=== PATIENT | female | born 1955 | race Asian ===

== ENCOUNTER 2017-04-14 23:36 | Emergency (ER) | payer OTHER ==
[2017-04-15] MEDS ORDERED: ASPIRIN CHEW 81 MG TABLET PO STA (00:02)
[2017-04-15 00:14] LABS: BASOPHILS # (AUTO) 0.1 10^3/uL (0.0-0.1); BASOPHILS % (AUTO) 0.5 %; EOSINOPHILS # (AUTO) 0.1 10^3/uL (0.0-0.7); EOSINOPHILS % (AUTO) 0.4 %; HGB - HEMOGLOBIN 13.3 g/dL (12.0-16.0); LYMPHOCYTES # (AUTO) 0.8 10^3/uL (1.5-3.5); LYMPHOCYTES % (AUTO) 6.4 %; MEAN CORPUSCULAR HEMOGLOBIN 29.8 pg (27.0-31.0); MEAN CORPUSCULAR HGB CONC 34.4 g/dL (32.0-36.0); MEAN CORPUSCULAR VOLUME 86.7 fL (81.0-99.0); MEAN PLATELET VOLUME 7.9 fL (7.9-10.8); MONOCYTES # (AUTO) 0.8 10^3/uL (0.0-1.0); MONOCYTES % (AUTO) 6.5 %; NEUTROPHILS # (AUTO) 10.1 10^3/uL (1.5-6.6); NEUTROPHILS % (AUTO) 86.2 %; PLT - PLATELET COUNT 265 10^3/uL (130-450); RED BLOOD COUNT 4.45 10^6/uL (4.20-5.40); RED CELL DISTRIBUTION WIDTH 12.7 % (12.0-15.0); WHITE BLOOD COUNT 11.7 x10^3/uL (4.8-10.8)
[2017-04-15 00:22] LABS: ALBUMIN 4.2 g/dL (3.2-5.5); ALBUMIN/GLOBULIN RATIO 1.2 (1.0-2.2); BILIRUBIN,TOTAL 1.8 mg/dL (0.2-1.0); CALCIUM 9.4 mg/dL (8.5-10.3); CREATININE 1.1 mg/dL (0.4-1.0); TOTAL PROTEIN 7.8 g/dL (6.7-8.2)
--- NOTE | 2017-04-15 00:41 | ED Physician Documentation ---
History of Present Illness - Stated complaint Stated Complaint: RT SIDE WEAKNESS - Chief complaint Chief Complaint: Neuro - History obtained from History obtained from: Patient (pt is here for evaluation of right arm and leg weakness. She reports that she woke from a nap at approx noon today and had weakness to her right leg and arm. she reports that she fell off the couch that she was sleeping on and layed on the floor for a couple hours until she was able to crawl to her bedroom where she had a stick and tried to walk. She arrived to the ER approx 12 hours after the onset of her symptoms. she reports no improvement or worsening of her symptoms since the onset. No other symptoms. ) Review of Systems Ten Systems: 10 systems reviewed and negative Constitutional: denies: Fever, Chills Eyes: denies: Loss of vision, Decreased vision, Photophobia Ears: denies: Tinnitus/ringing Nose: denies: Sinus pressure / pain Throat: denies: Oral lesions / sores, Sore throat Cardiac: denies: Chest pain / pressure, Palpitations, Pedal edema, Calf pain Respiratory: denies: Dyspnea, Cough GI: denies: Abdominal Pain, Nausea, Vomiting, Constipation, Diarrhea : reports: Dysuria (pt states that she has a UTI but is not taking medications.). denies: Hematuria Skin: denies: Rash, Lesions Musculoskeletal: denies: Neck pain, Back pain, Extremity pain, Joint pain Neurologic: reports: Focal weakness (right leg and right arm), Numbness (right leg and right arm). denies: Generalized weakness, Confused, Altered mental status, Headache, Head injury, LOC PD PAST MEDICAL HISTORY - Past Medical History Past Medical History: Yes Endocrine/Autoimmune: HyPOthyroidism - Past Surgical History Past Surgical History: No - Present Medications Home Medications: Ambulatory Orders Medication Instructions Recorded Confirmed Levothyroxine [Synthroid] 125 mcg PO DAILY 01/29/15 04/14/17 - Allergies Allergies/Adverse Reactions: Allergies Allergy/AdvReac Type Severity Reaction Status Date / Time heparin Allergy Unknown Verified 04/14/17 23:47 meperidine HCl * Allergy Unknown Verified 04/14/17 23:47 [From Demerol] - Social History Does the pt smoke?: No Smoking Status: Never smoker Does the pt drink ETOH?: No Does the pt have substance abuse?: No - Immunizations Immunizations are current?: Yes - POLST Patient has POLST: No PD ED PE NORMAL - Vitals Vital signs reviewed: Yes - General General: Alert and oriented X 3, No acute distress, Well developed/nourished - HEENT HEENT: Atraumatic, PERRL, EOMI, Ears normal, Moist mucous membranes - Neck Neck: No bony TTP - Cardiac Cardiac: No murmur, No gallop. No: RRR (tachycardic to 105 in triage rate of 94 on the ECG) - Respiratory Respiratory: No respiratory distress, Clear bilaterally - Abdomen Abdomen: Normal bowel sounds, Soft - Back Back: No CVA TTP - Derm Derm: Normal color, Warm and dry, No rash - Extremities Extremities: No deformity, No tenderness to palpate, No edema, No calf tenderness / cord - Neuro Neuro: Alert and oriented X 3, correctional probation officer 2-12 intact, Normal speech Eye Opening: Spontaneous Motor: Obeys Commands Verbal: Oriented GCS Score: 15 - Psych Psych: Normal mood, Normal affect PD ED PE EXPANDED - Neuro Neuro: Alert and Oriented X 3, Normal Sensation (Pt reported numbness to right leg and right arm but reported equal sensation to light touch to bilateral upper and lower extremities. ), Normal Speech, Weakness (pt with 5/5 strength left LE and 2/5 strength right LE. 5/5 left UE and 4/5 right UE), CNII-XII intact, PERRL, Normal finger nose, Normal speech. No: Confused, Disoriented, Lethargic, Obtunded, Unresponsive, Right face, Left face, CN deficit, Nystagmus , Aphasia, Dysarthria Results - Vitals Vitals: Vital Signs - 24 hr 04/14/17 04/15/17 04/15/17 23:41 01:01 01:44 Temperature 37.2 C 38.2 C H Heart Rate 105 H 98 94 Respiratory 18 18 18 Rate Blood Pressure 196/98 H 187/94 H 185/97 H O2 Saturation 97 100 97 Oxygen O2 Source Room air - EKG (time done) 0010 Rate: Rate (enter#) Rhythm: NSR [place]: Normal Intervals: Normal AL, QRS normal. No: Prolonged QT QRS: Normal Ischemia: T wave inversion (V1-V6, 2, 3 avf) - Labs Labs: Laboratory Tests 04/14/17 04/14/17 04/14/17 00:53 23:52 23:52 WBC 11.7 H RBC 4.45 Hgb 13.3 Hct 38.6 MCV 86.7 MCH 29.8 MCHC 34.4 RDW 12.7 Plt Count 265 MPV 7.9 Neut # 10.1 H Lymph # 0.8 L Harper # 0.8 Eos # 0.1 Baso # 0.1 Absolute Nucleated RBC 0.00 Nucleated RBC % 0.0 PT 12.3 INR 1.1 APTT 24.9 Sodium 140 Potassium 3.3 L Chloride 102 Carbon Dioxide 25 Anion Gap 13.0 BUN 13 Creatinine 1.1 H Estimated GFR (MDRD) 51 L Glucose 127 H Calcium 9.4 Total Bilirubin 1.8 H AST 44 H ALT 26 Alkaline Phosphatase 75 Total Creatine Kinase 593 H Troponin I Total Protein 7.8 Albumin 4.2 Globulin 3.6 Albumin/Globulin Ratio 1.2 Lipase 22 Urine Color Urine Clarity Urine pH Ur Specific [place] Urine Protein Urine Glucose (UA) Urine Ketones Urine Occult Blood Urine Nitrite Urine Bilirubin Urine Urobilinogen Ur Leukocyte Esterase Urine RBC Urine WBC Ur Squamous Epith Cells Urine Bacteria Ur Microscopic Review Urine Culture Comments 04/14/17 04/15/17 23:52 01:44 WBC RBC Hgb Hct MCV MCH MCHC RDW Plt Count MPV Neut # Lymph # Harper # Eos # Baso # Absolute Nucleated RBC Nucleated RBC % PT INR APTT Sodium Potassium Chloride Carbon Dioxide Anion Gap BUN Creatinine Estimated GFR (MDRD) Glucose Calcium Total Bilirubin AST ALT Alkaline Phosphatase Total Creatine Kinase Troponin I 0.04 Total Protein Albumin Globulin Albumin/Globulin Ratio Lipase Urine Color YELLOW Urine Clarity HAZY Urine pH 6.0 Ur Specific [place] 1.015 Urine Protein 100 H Urine Glucose (UA) NEGATIVE Urine Ketones NEGATIVE Urine Occult Blood MODERATE H Urine Nitrite NEGATIVE Urine Bilirubin NEGATIVE Urine Urobilinogen 0.2 (NORMAL) Ur Leukocyte Esterase SMALL H Urine RBC 6-10 H Urine WBC >25 H Ur Squamous Epith Cells FEW Squamous Urine Bacteria Many H Ur Microscopic Review INDICATED Urine Culture Comments INDICATED - Rads (name of study) Head CT Radiology: Final report received CTA head Radiology: Final report received CTA neck Radiology: Final report received PD MEDICAL DECISION MAKING - ED course Complexity details: reviewed results, re-evaluated patient, considered differential, d/w patient, d/w family, d/w wine consultant ED course: pt out of the window for TPA becuase she came in approx 12 hours after onset of symptoms. head CT neg for acute bleed, CTA of head and neck neg for emergent pathology. initial discussion with hospitalist the decision was made to [facility] because we did not have a neurologist here. at 0200 after her CTA head and neck , pt reported a complete resolution of her symptoms. upon re-evaluation pt was able to rise her leg in the air and reported equal sensation. Pt was given an ASA in the ER. Because of the resolution of her symptoms she is able to stay here for observation and work up for TIA. Departure - Departure Disposition: ED Place in Observation Clinical Impression: TIA (transient ischemic attack) Condition: Stable
--- NOTE | 2017-04-15 00:42 | CT Preliminary Report ---
Exam: CT HEAD W/O IMPRESSION: Generalized age-related cortical atrophic changes without evidence of acute intracranial abnormality. [facility] SITE ID: [id number]
--- NOTE | 2017-04-15 00:49 | CT Report ---
EXAM: CT HEAD EXAM DATE: 04/15/2017 12:34 AM. CLINICAL HISTORY: Leg weakness and fall. COMPARISON: None. TECHNIQUE: Multiaxial CT images were obtained from the foramen magnum to the vertex. Reformats: Coron al. IV contrast: None. In accordance with CT protocol optimization, one or more of the following dose reduction techniques w ere utilized for this exam: automated exposure control, adjustment of mA and/or KV based on patient s ize, or use of iterative reconstructive technique. FINDINGS: Parenchyma: No intraparenchymal hemorrhage. No evidence of mass, midline shift, or CT findings of acu te infarction. Rosales-white differentiation is distinct. Diffuse chronic microangiopathic white matter changes are evident. Extraaxial Spaces: Normal for age. No subdural or epidural collections identified. Ventricles: The ventricles and cortical sulci are mildly enlarged, consistent with age-related tissue loss. Sinuses and orbits: Imaged paranasal sinuses, orbits, and mastoids show no significant abnormality. Bones: No evidence of fracture or calvarial defect. IMPRESSION: Generalized age-related cortical atrophic changes without evidence of acute intracranial abnormality. [facility] Referring Provider Line: [phone] SITE ID: [id number]
[2017-04-15 01:00] LABS: INR 1.1 (0.8-1.2); PT - PROTHROMBIN TIME 12.3 secs (9.9-12.6)
[2017-04-15] MEDS ORDERED: IOPAMIDOL-300 100 ML VIAL ONE (01:09)
[2017-04-15] MEDS ORDERED: IOPAMIDOL-300 100 ML VIAL IVP ONE (01:37)
[2017-04-15] MEDS ORDERED: SODIUM CHLORIDE 0.9% 1,000 ML IV ONE (01:45)
[2017-04-15 01:57] LABS: BILIRUBIN,URINE NEGATIVE (NEGATIVE); GLUCOSE, URINE (UA) NEGATIVE (NEGATIVE); KETONES,URINE (UA) NEGATIVE (NEGATIVE); LEUKOCYTE ESTERASE, URINE SMALL (NEGATIVE); NITRITE,URINE NEGATIVE (NEGATIVE); OCCULT BLOOD,URINE MODERATE (NEGATIVE); PROTEIN,URINE 100 mg/dL (NEGATIVE); UROBILINOGEN,URINE 0.2 (NORMAL) E.U./dL (NORMAL)
[2017-04-15 01:58] LABS: CLARITY,URINE HAZY (CLEAR)
[2017-04-15 02:03] LABS: BACTERIA,URINE Many /HPF (None Seen); SQUAMOUS EPITHELIAL CELL,UR FEW Squamous (<= Few)
--- NOTE | 2017-04-15 02:09 | CT Preliminary Report ---
Exam: CT HEAD ANGIO IMPRESSION: 1. No abnormal brain parenchymal enhancement. 2. Patent dural venous sinuses. 3. Mild irregularity of the anterior and posterior circulation vessels, likely reflecting intracrania l atherosclerosis. 4. Superimposed focal high-grade stenosis of the left P2 segment measures 60-70 percent. [facility] SITE ID: [id number]
--- NOTE | 2017-04-15 02:15 | CT Preliminary Report ---
Exam: CT NECK ANGIO IMPRESSION: 1. Normal CT angiogram of the neck. 2. 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 [facility] SITE ID: [id number]
--- NOTE | 2017-04-15 02:18 | CT Report ---
EXAM: CT ANGIOGRAM HEAD. CT SCAN OF THE HEAD WITH CONTRAST. EXAM DATE: 04/15/2017 01:38 AM CLINICAL HISTORY: Right-sided weakness. COMPARISON: Noncontrast brain CT from the same day. TECHNIQUE: 1. CT Scan Head: Using a multidetector scanner, axial images were acquired from the foramen magnum to the skull vertex following contrast administration. 2. CT Angiogram: Using a multidetector scanner, high-resolution axial images were acquired from the s kull base through vertex following rapid infusion of intravenous contrast. Reformats: Multiplanar MIP reformats were reconstructed. Nascet criteria used for stenosis measurement. IV Contrast: 80 mL of Isovue 300. In accordance with CT protocol optimization, one or more of the following dose reduction techniques w ere utilized for this exam: automated exposure control, adjustment of mA and/or KV based on patient s ize, or use of iterative reconstructive technique. FINDINGS: No abnormal brain parenchymal enhancement is appreciated. There is normal contrast opacification in t he dural venous sinuses. On the CT angiogram images of the head, the internal carotid arteries are patent from the superior ce rvical to the supraclinoid portions. Mild calcified plaque is present at bilateral carotid siphons wi thout high-grade stenosis. The bilateral A1, A2, M1, and M2 segments are patent. A normal caliber ant erior communicating artery is identified. There is mild diffuse irregularity of the anterior and midd le cerebral arteries without focal high-grade stenosis, likely representing intracranial atherosclero sis. In the posterior circulation, the bilateral V4 segments are patent. Bilateral AICA/PICA variants are noted. The basilar artery is patent throughout its course to the terminus. The superior cerebellar an d posterior cerebral arteries are patent. There is mild diffuse irregularity of the bilateral posteri or cerebral arteries with focal high-grade stenosis of the left P2 segment measuring 60-70% (image 84 , series 5). Posterior communicating arteries are not clearly seen. IMPRESSION: 1. No abnormal brain parenchymal enhancement. 2. Patent dural venous sinuses. 3. Mild irregularity of the anterior and posterior circulation vessels, likely reflecting intracrania l atherosclerosis. 4. Superimposed focal high-grade stenosis of the left P2 segment measures 60-70%. [facility] Referring Provider Line: [phone] SITE ID: [id number]
--- NOTE | 2017-04-15 02:24 | CT Report ---
EXAM: CT ANGIOGRAM NECK EXAM DATE: 04/15/2017 01:38 AM. CLINICAL HISTORY: Right sided weakness. COMPARISON: None. TECHNIQUE: Routine axial helical imaging was performed from the skull base through the aortic arch. I V Contrast: Yes. Reconstructions: Routine multiplanar 3D MIP reconstructions. Evaluation of arterial stenosis is based on a NASCET method of measurement. In accordance with CT protocol optimization, one or more of the following dose reduction techniques w ere utilized for this exam: automated exposure control, adjustment of mA and/or KV based on patient s ize, or use of iterative reconstructive technique. FINDINGS: Right Carotid: The common carotid, internal carotid, and external carotid arteries are widely patent. No dissection, significant atherosclerotic plaque, or calcification identified. Left Carotid: The common carotid, internal carotid, and external carotid arteries are widely patent. No dissection, significant atherosclerotic plaque, or calcification identified. Vertebrals: The vertebrobasilar system shows no stenoses. The vertebral arteries are codominant. Other: The visualized upper lungs are clear. The airway is patent. Ajeg-bt-bvnihjri degenerative diallo ges are present throughout the cervical spine with moderate spinal canal stenosis at C4 and C5 due to ossification of the posterior longitudinal ligament. No acute abnormality is seen in the soft tissue s of the neck. IMPRESSION: 1. Normal CT angiogram of the neck. 2. 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 [facility] Referring Provider Line: [phone] SITE ID: [id number]
[2017-04-15 02:35] VITALS: BP 176/90
[2017-04-15] MEDS ORDERED: SULFAMETH/TRIMETH DS 800/160 MG TABLET PO STA (02:45)
== END 2017-04-15 03:09 | disposition home or self-care (01) ==
LOC: ED 23:36
DX: G45.9 Transient cerebral ischemic attack, unspecified (principal); E03.9 Hypothyroidism, unspecified; N39.0 Urinary tract infection, site not specified
CPT/HCPCS: 36415; 70450; 70496; 70498; 80053; 81001; 82550; 83690; 84484; 85025; 85610; 85730; 87086; 87181; 93005; 96360; 99284; 99285; A9270; Q9967; 81003

== ENCOUNTER 2017-05-01 08:00 | Outpatient (CLI) | payer OTHER | END 2017-05-01 08:01 | disposition home or self-care (01) | LOC: LAB.R 08:00 | PROVIDERS: ATTEND Physician Assistant Medical | DX: N39.0 Urinary tract infection, site not specified (principal) | CPT/HCPCS: 87086 ==

== ENCOUNTER 2017-10-02 09:56 | Outpatient (CLI) | payer OTHER | END 2017-10-02 09:57 | disposition critical access hospital (66) | LOC: EMS 09:56 | PROVIDERS: ATTEND Surgery | DX: R07.9 Chest pain, unspecified (principal) | CPT/HCPCS: A0425; A0427 ==

== ENCOUNTER 2017-10-02 10:16 | Emergency (ER) | payer OTHER ==
--- NOTE | 2017-10-02 10:53 | ED Physician Documentation ---
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 She indicates she was a bit short of breath with exertion yesterday associated with this pain. Pain is much better today. She states that when she was in the ambulance she had relief of this pain with the use of nitroglycerin and that her blood pressure was markedly elevated and is now improved. She has had issue with her blood pressure and has had her blood pressure medicine increased but continues to have problems with the blood pressure. She also feels that her job is significant stress and that when she returns to work after being gone there are a number of deficiencies that she is having to correct. Review of Systems Constitutional: denies: Fever Eyes: denies: Decreased vision Ears: denies: Ear pain Nose: denies: Rhinorrhea / runny nose, Congestion Throat: denies: Sore throat Cardiac: reports: Chest pain / pressure. denies: Palpitations, Pedal edema, Calf pain Respiratory: reports: Dyspnea. denies: Cough, Wheezing GI: denies: Abdominal Pain, Nausea, Vomiting : denies: Dysuria, Frequency PD PAST MEDICAL HISTORY - Past Medical History Cardiovascular: Hypertension, High cholesterol, Coronary artery disease Respiratory: None Neuro: TIA Endocrine/Autoimmune: HyPOthyroidism GI: None MANAGER INFRASTRUCTURE: None : Kidney stones Psych: None Musculoskeletal: None Derm: None - Past Surgical History Past Surgical History: No - Present Medications Home Medications: Ambulatory Orders Medication Instructions Recorded Confirmed Levothyroxine [Synthroid] 125 mcg PO DAILY 01/29/15 04/14/17 Aspirin [Aspirin EC] 81 mg 10/02/17 Lisinopril 10 mg 10/02/17 Lisinopril 10 mg PO DAILY #30 tablet 10/02/17 Metoprolol Succinate [Toprol Xl] 100 mg 10/02/17 - Allergies Allergies/Adverse Reactions: Allergies Allergy/AdvReac Type Severity Reaction Status Date / Time heparin Allergy Unknown Verified 04/14/17 23:47 meperidine HCl * Allergy Unknown Verified 04/14/17 23:47 [From Demerol] nitrofurantoin Allergy Rash Verified 10/02/17 10:23 [From Macrodantin] - Social History Does the pt smoke?: No Smoking Status: Never smoker Does the pt drink ETOH?: No Does the pt have substance abuse?: No - Immunizations Immunizations are current?: Yes - POLST Patient has POLST: No PD ED PE NORMAL - Vitals Vital signs reviewed: Yes (hypertensive ) - General General: Alert and oriented X 3, No acute distress, Well developed/nourished - HEENT HEENT: Atraumatic, PERRL, EOMI - Neck Neck: Supple, no meningeal sign, No bony TTP - Cardiac Cardiac: RRR, No murmur - Respiratory Respiratory: No respiratory distress, Clear bilaterally - Abdomen Abdomen: Soft, Non tender - Back Back: No CVA TTP, No spinal TTP - Derm Derm: Normal color, Warm and dry, No rash - Extremities Extremities: No deformity, No edema - Neuro Neuro: Alert and oriented X 3, No motor deficit, No sensory deficit, Normal speech Eye Opening: Spontaneous Motor: Obeys Commands Verbal: Oriented GCS Score: 15 - Psych Psych: Normal mood, Normal affect Results - Vitals Vitals: Vital Signs - 24 hr 10/02/17 10/02/17 10/02/17 10:17 10:38 11:29 Heart Rate 54 L 52 L 55 L Respiratory 16 14 18 Rate Blood Pressure 189/100 H 177/90 H 179/93 H O2 Saturation 98 98 96 10/02/17 10/02/17 12:02 13:13 Heart Rate 53 L 56 L Respiratory 23 15 Rate Blood Pressure 206/90 H 135/108 H O2 Saturation 97 96 Oxygen O2 Source Room air - EKG (time done) 1025 Rate: Rate (enter#) (52) Rhythm: NSR Ischemia: Other (flat T's laterally ) Compare to prior EKG: Changed from prior EKG (SPT 04-15-1017 rate has slowed and the lateral ST depression previously seen has improved. ) Computer interpretation: Agree with computer - Labs Labs: Laboratory Tests 10/02/17 10/02/17 10/02/17 10:55 10:55 10:55 WBC 6.6 RBC 4.29 Hgb 13.1 Hct 38.7 MCV 90.1 MCH 30.6 MCHC 33.9 RDW 13.7 Plt Count 209 MPV 7.1 L Neut # (Auto) 4.7 Lymph # (Auto) 1.5 Prentiss # (Auto) 0.3 Eos # (Auto) 0.1 Baso # (Auto) 0.0 Absolute Nucleated RBC 0.00 Nucleated RBC % 0.0 Sodium 140 Potassium 4.2 Chloride 108 Carbon Dioxide 25 Anion Gap 7.0 BUN 22 H Creatinine 0.9 Estimated GFR (MDRD) 64 L Glucose 93 Calcium 9.2 Total Bilirubin 1.1 H AST 24 ALT 17 Alkaline Phosphatase 71 Troponin I < 0.04 Total Protein 6.8 Albumin 3.9 Globulin 2.9 Albumin/Globulin Ratio 1.3 Lipase 48 - Rads (name of study) 2 veiw chest Radiology: Prelim report reviewed (Impression: 1. Cardiomegaly. 2 No acute disease.), EMP read indepedently, See rad report PD MEDICAL DECISION MAKING - ED course Complexity details: reviewed results, re-evaluated patient, considered differential, d/w patient ED course: 62-year-old female with a day long history of chest pain is found to have significant hypertension and has her pain relieved with use of nitroglycerin and reduction in her blood pressure. She does states she is under a lot of stress at work and she has stopped taking her lisinopril about 1 month ago. She continues to take some beta-julio. Her electric cardiogram is unremarkable and despite 9 out of 10 chest pain all day yesterday she has no change in her troponin. I suspect her pain may be related to her hypertension and I have talked to her primary care doctor PEÑA Poon and she intended the patient to stay on the lisinopril. The patient is given a new prescription for her lisinopril and she will continue to take it and she is given a dose here in the emergency department. - Sepsis Event Vital Signs: Vital Signs - 24 hr 10/02/17 10/02/17 10/02/17 10:17 10:38 11:29 Heart Rate 54 L 52 L 55 L Respiratory 16 14 18 Rate Blood Pressure 189/100 H 177/90 H 179/93 H O2 Saturation 98 98 96 10/02/17 10/02/17 12:02 13:13 Heart Rate 53 L 56 L Respiratory 23 15 Rate Blood Pressure 206/90 H 135/108 H O2 Saturation 97 96 Oxygen O2 Source Room air Departure - Departure Disposition: 01 Home, Self Care Clinical Impression: Atypical chest pain Hypertension Qualifiers: Hypertension type: unspecified Qualified Code(s): I10 - Essential (primary) hypertension Condition: Stable Instructions: ED Chest Pain Atypical Unkn Cause, ED HTN Established Follow-Up: Dalia Poon PA-C [Primary Care Provider] - Prescriptions: Lisinopril 10 mg PO DAILY #30 tablet Discharge Date/Time: 10/02/17 13:20
[2017-10-02 11:00] LABS: BASOPHILS % (AUTO) 0.5 %; EOSINOPHILS # (AUTO) 0.1 10^3/uL (0.0-0.7); EOSINOPHILS % (AUTO) 1.6 %; HGB - HEMOGLOBIN 13.1 g/dL (12.0-16.0); LYMPHOCYTES # (AUTO) 1.5 10^3/uL (1.5-3.5); LYMPHOCYTES % (AUTO) 22.2 %; MEAN CORPUSCULAR HEMOGLOBIN 30.6 pg (27.0-31.0); MEAN CORPUSCULAR HGB CONC 33.9 g/dL (32.0-36.0); MEAN CORPUSCULAR VOLUME 90.1 fL (81.0-99.0); MEAN PLATELET VOLUME 7.1 fL (7.9-10.8); MONOCYTES # (AUTO) 0.3 10^3/uL (0.0-1.0); MONOCYTES % (AUTO) 5.3 %; NEUTROPHILS # (AUTO) 4.7 10^3/uL (1.5-6.6); NEUTROPHILS % (AUTO) 70.4 %; PLT - PLATELET COUNT 209 10^3/uL (130-450); RED BLOOD COUNT 4.29 10^6/uL (4.20-5.40); RED CELL DISTRIBUTION WIDTH 13.7 % (12.0-15.0); WHITE BLOOD COUNT 6.6 x10^3/uL (4.8-10.8)
[2017-10-02 11:14] LABS: ALBUMIN 3.9 g/dL (3.2-5.5); ALBUMIN/GLOBULIN RATIO 1.3 (1.0-2.2); BILIRUBIN,TOTAL 1.1 mg/dL (0.2-1.0); CALCIUM 9.2 mg/dL (8.5-10.3); CREATININE 0.9 mg/dL (0.4-1.0); TOTAL PROTEIN 6.8 g/dL (6.7-8.2)
[2017-10-02] MEDS ORDERED: LISINOPRIL 5 MG TABLET PO STA (13:07)
[2017-10-02 13:15] VITALS: BP 135/108
--- NOTE | 2017-10-03 23:20 | XRAY Report ---
Procedure Date: 10/02/2017 Accession Number: [id number] / [id number] Procedure: XR - Chest 2 View X-Ray CPT Code: 40791 FULL RESULT: EXAM: CHEST RADIOGRAPHY EXAM DATE: 10/02/2017 11:19 AM. CLINICAL HISTORY: Chest pain. Headache. Hypertension. COMPARISON: 07/22/2006. TECHNIQUE: 2 views. FINDINGS: Lungs/Pleura: Linear scar/atelectasis in the left midlung. No consolidation. No vascular congestion. No pneumothorax. Mediastinum: Cardiomegaly. Aortic tortuosity. Other: Degenerative changes of the thoracic spine and both shoulders. IMPRESSION: 1. Cardiomegaly. 2. No acute disease. [facility]
== END 2017-10-02 13:20 | disposition home or self-care (01) ==
LOC: EDUNIT# → ED 10:16
DX: R07.89 Other chest pain (principal); I10 Essential (primary) hypertension; I25.10 Atherosclerotic heart disease of native coronary artery without angina pectoris; E78.00 Pure hypercholesterolemia, unspecified; E03.9 Hypothyroidism, unspecified; Z86.73 Personal history of transient ischemic attack (TIA), and cerebral infarction without residual deficits; Z87.442 Personal history of urinary calculi
CPT/HCPCS: 36415; 71046; 80053; 83690; 84484; 85025; 93005; 99283; 99284; A9270

== ENCOUNTER 2019-07-15 08:00 | Outpatient (CLI) | payer OTHER ==
[2019-07-15 12:05] LABS: BASOPHILS % (AUTO) 0.7 %; EOSINOPHILS # (AUTO) 0.2 10^3/uL (0.0-0.7); EOSINOPHILS % (AUTO) 3.5 %; HGB - HEMOGLOBIN 14.5 g/dL (12.0-16.0); LYMPHOCYTES # (AUTO) 1.5 10^3/uL (1.5-3.5); LYMPHOCYTES % (AUTO) 34.3 %; MEAN CORPUSCULAR HEMOGLOBIN 29.3 pg (27.0-31.0); MEAN CORPUSCULAR VOLUME 88.9 fL (81.0-99.0); MEAN PLATELET VOLUME 9.3 fL (7.9-10.8); MONOCYTES # (AUTO) 0.3 10^3/uL (0.0-1.0); MONOCYTES % (AUTO) 6.8 %; NEUTROPHILS # (AUTO) 2.3 10^3/uL (1.5-6.6); NEUTROPHILS % (AUTO) 54.7 %; PLT - PLATELET COUNT 225 10^3/uL (130-450); RED BLOOD COUNT 4.95 10^6/uL (4.20-5.40); WHITE BLOOD COUNT 4.3 x10^3/uL (4.8-10.8)
[2019-07-15 12:25] LABS: ALBUMIN 4.6 g/dL (3.2-5.5); ALBUMIN/GLOBULIN RATIO 1.6 (1.0-2.2); ALKALINE PHOSPHATASE 64 IU/L (42-121); ALT ALANINE AMINOTRANSFERASE 20 IU/L (10-60); AST ASPARTATE AMINOTRANSFERASE 30 IU/L (10-42); BILIRUBIN,TOTAL 1.1 mg/dL (0.2-1.0); BUN - BLOOD UREA NITROGEN 19 mg/dL (6-20); CALCIUM 9.1 mg/dL (8.5-10.3); CARBON DIOXIDE - CO2 25 mmol/L (21-32); CHLORIDE 107 mmol/L (101-111); CHOL/HDL RATIO 2.9 (<4.4); CHOLESTEROL 234 mg/dL; GLUCOSE 92 mg/dL (70-100); HDL CHOLESTEROL 81 mg/dL; LDL CHOLESTEROL,CALCULATED 132 mg/dL; LDL/HDL RATIO 1.6 (<4.4); SODIUM 140 mmol/L (135-145); TOTAL PROTEIN 7.4 g/dL (6.7-8.2); VLDL CHOLESTEROL 21 mg/dL
[2019-07-15 13:17] LABS: FREE T4 (FREE THYROXINE) 0.83 ng/dL (0.58-1.64)
== END 2019-07-15 23:59 | disposition home or self-care (01) ==
LOC: LAB.WCP 08:00
PROVIDERS: ATTEND Physician Assistant Medical
DX: J20.9 Acute bronchitis, unspecified (principal); I10 Essential (primary) hypertension; R07.9 Chest pain, unspecified; E03.9 Hypothyroidism, unspecified; G45.9 Transient cerebral ischemic attack, unspecified
CPT/HCPCS: 36415; 80053; 80061; 83721; 84439; 84443; 85025

== ENCOUNTER 2020-10-25 08:00 | Outpatient (CLI) | payer OTHER ==
[2020-10-25 14:34] LABS: BASOPHILS % (AUTO) 0.9 %; EOSINOPHILS # (AUTO) 0.2 10^3/uL (0.0-0.7); HCT - HEMATOCRIT 41.6 % (37.0-47.0); HGB - HEMOGLOBIN 13.6 g/dL (12.0-16.0); LYMPHOCYTES # (AUTO) 1.3 10^3/uL (1.5-3.5); LYMPHOCYTES % (AUTO) 31.3 %; MEAN CORPUSCULAR HEMOGLOBIN 29.9 pg (27.0-31.0); MEAN CORPUSCULAR HGB CONC 32.7 g/dL (32.0-36.0); MEAN CORPUSCULAR VOLUME 91.4 fL (81.0-99.0); MEAN PLATELET VOLUME 10.3 fL (7.9-10.8); MONOCYTES # (AUTO) 0.3 10^3/uL (0.0-1.0); MONOCYTES % (AUTO) 7.7 %; NEUTROPHILS # (AUTO) 2.4 10^3/uL (1.5-6.6); NEUTROPHILS % (AUTO) 55.9 %; PLT - PLATELET COUNT 246 10^3/uL (130-450); RED BLOOD COUNT 4.55 10^6/uL (4.20-5.40); RED CELL DISTRIBUTION WIDTH 12.3 % (12.0-15.0); WHITE BLOOD COUNT 4.3 x10^3/uL (4.8-10.8)
[2020-10-25 14:47] LABS: ALBUMIN 4.4 g/dL (3.2-5.5); ALBUMIN/GLOBULIN RATIO 1.4 (1.0-2.2); ALKALINE PHOSPHATASE 72 IU/L (42-121); ALT ALANINE AMINOTRANSFERASE 20 IU/L (10-60); AST ASPARTATE AMINOTRANSFERASE 29 IU/L (10-42); BILIRUBIN,TOTAL 0.8 mg/dL (0.2-1.0); BUN - BLOOD UREA NITROGEN 34 mg/dL (6-20); CALCIUM 9.1 mg/dL (8.5-10.3); CARBON DIOXIDE - CO2 24 mmol/L (21-32); CHLORIDE 108 mmol/L (101-111); CHOL/HDL RATIO 3.1 (<4.4); CHOLESTEROL 246 mg/dL; GFR - MDRD 56 (>89); GLUCOSE 97 mg/dL (70-100); HDL CHOLESTEROL 80 mg/dL; LDL CHOLESTEROL,CALCULATED 152 mg/dL; LDL/HDL RATIO 1.9 (<4.4); POTASSIUM 4.4 mmol/L (3.5-5.0); SODIUM 139 mmol/L (135-145); TOTAL PROTEIN 7.5 g/dL (6.7-8.2); TRIGLYCERIDES 68 mg/dL; VLDL CHOLESTEROL 14 mg/dL
[2020-10-25 14:55] LABS: THYROID STIMULATING HORMONE 3.82 uIU/mL (0.34-5.60)
== END 2020-10-25 23:59 | disposition home or self-care (01) ==
LOC: LAB.WCP 08:00
PROVIDERS: ATTEND Physician Assistant Medical
DX: Z00.00 Encounter for general adult medical examination without abnormal findings (principal); E03.9 Hypothyroidism, unspecified
CPT/HCPCS: 36415; 80053; 80061; 83721; 84443; 85025

== ENCOUNTER 2021-11-16 10:39 | Outpatient (CLI) | payer OTHER ==
[2021-11-16 17:58] LABS: BASOPHILS % (AUTO) 0.8 %; EOSINOPHILS # (AUTO) 0.1 10^3/uL (0.0-0.7); EOSINOPHILS % (AUTO) 2.4 %; HCT - HEMATOCRIT 40.9 % (37.0-47.0); HGB - HEMOGLOBIN 13.5 g/dL (12.0-16.0); LYMPHOCYTES # (AUTO) 1.2 10^3/uL (1.5-3.5); LYMPHOCYTES % (AUTO) 33.3 %; MEAN CORPUSCULAR HEMOGLOBIN 30.1 pg (27.0-31.0); MEAN CORPUSCULAR VOLUME 91.1 fL (81.0-99.0); MEAN PLATELET VOLUME 9.8 fL (7.9-10.8); MONOCYTES # (AUTO) 0.3 10^3/uL (0.0-1.0); MONOCYTES % (AUTO) 8.4 %; NEUTROPHILS % (AUTO) 54.8 %; PLT - PLATELET COUNT 201 10^3/uL (130-450); RED BLOOD COUNT 4.49 10^6/uL (4.20-5.40); RED CELL DISTRIBUTION WIDTH 12.5 % (12.0-15.0); WHITE BLOOD COUNT 3.7 x10^3/uL (4.8-10.8)
[2021-11-16 18:15] LABS: ALBUMIN 4.6 g/dL (3.2-5.5); ALBUMIN/GLOBULIN RATIO 1.6 (1.0-2.2); ALKALINE PHOSPHATASE 69 IU/L (42-121); ALT ALANINE AMINOTRANSFERASE 22 IU/L (10-60); AST ASPARTATE AMINOTRANSFERASE 30 IU/L (10-42); BILIRUBIN,TOTAL 1.2 mg/dL (0.2-1.0); BUN - BLOOD UREA NITROGEN 22 mg/dL (6-20); CALCIUM 9.5 mg/dL (8.5-10.3); CARBON DIOXIDE - CO2 26 mmol/L (21-32); CHLORIDE 109 mmol/L (101-111); CHOL/HDL RATIO 2.7 (<4.4); CHOLESTEROL 217 mg/dL; CREATININE 0.9 mg/dL (0.4-1.0); GFR - MDRD 63 (>89); GLUCOSE 87 mg/dL (70-100); HDL CHOLESTEROL 81 mg/dL; LDL CHOLESTEROL,CALCULATED 119 mg/dL; LDL/HDL RATIO 1.5 (<4.4); SODIUM 143 mmol/L (135-145); TOTAL PROTEIN 7.4 g/dL (6.7-8.2); TRIGLYCERIDES 83 mg/dL; VLDL CHOLESTEROL 17 mg/dL
[2021-11-16 18:25] LABS: THYROID STIMULATING HORMONE 1.58 uIU/mL (0.34-5.60)
== END 2021-11-16 10:40 | disposition home or self-care (01) ==
LOC: LAB.F 10:39 → LAB.N 10:40
PROVIDERS: ATTEND Physician Assistant Medical
DX: I10 Essential (primary) hypertension (principal); E03.9 Hypothyroidism, unspecified
CPT/HCPCS: 36415; 80053; 80061; 83721; 84443; 85025

== ENCOUNTER 2023-02-11 08:41 | Outpatient (CLI) | payer OTHER ==
[2023-02-11 12:35] LABS: BASOPHILS % (AUTO) 0.9 %; EOSINOPHILS # (AUTO) 0.1 10^3/uL (0.0-0.7); EOSINOPHILS % (AUTO) 2.6 %; HCT - HEMATOCRIT 42.8 % (37.0-47.0); HGB - HEMOGLOBIN 14.1 g/dL (12.0-16.0); LYMPHOCYTES # (AUTO) 1.3 10^3/uL (1.5-3.5); LYMPHOCYTES % (AUTO) 38.4 %; MEAN CORPUSCULAR HGB CONC 32.9 g/dL (32.0-36.0); MEAN CORPUSCULAR VOLUME 91.1 fL (81.0-99.0); MEAN PLATELET VOLUME 9.5 fL (7.9-10.8); MONOCYTES # (AUTO) 0.3 10^3/uL (0.0-1.0); MONOCYTES % (AUTO) 7.7 %; NEUTROPHILS # (AUTO) 1.8 10^3/uL (1.5-6.6); NEUTROPHILS % (AUTO) 50.1 %; PLT - PLATELET COUNT 214 10^3/uL (130-450); RED CELL DISTRIBUTION WIDTH 12.2 % (12.0-15.0); WHITE BLOOD COUNT 3.5 x10^3/uL (4.8-10.8)
[2023-02-11 12:53] LABS: ALBUMIN 4.5 g/dL (3.2-5.5); ALBUMIN/GLOBULIN RATIO 1.7 (1.0-2.2); ALKALINE PHOSPHATASE 74 IU/L (42-121); ALT ALANINE AMINOTRANSFERASE 18 IU/L (10-60); AST ASPARTATE AMINOTRANSFERASE 23 IU/L (10-42); BILIRUBIN,TOTAL 1.2 mg/dL (0.2-1.0); BUN - BLOOD UREA NITROGEN 20 mg/dL (6-20); CALCIUM 9.6 mg/dL (8.5-10.3); CARBON DIOXIDE - CO2 29 mmol/L (21-32); CHLORIDE 108 mmol/L (101-111); CHOL/HDL RATIO 2.5 (<4.4); CHOLESTEROL 203 mg/dL; CREATININE 0.9 mg/dL (0.6-1.3); GFR - MDRD 63 (>89); GLUCOSE 100 mg/dL (74-104); HDL CHOLESTEROL 81 mg/dL; LDL CHOLESTEROL,CALCULATED 104 mg/dL; LDL/HDL RATIO 1.3 (<4.4); POTASSIUM 4.2 mmol/L (3.5-4.5); SODIUM 142 mmol/L (135-145); TOTAL PROTEIN 7.2 g/dL (6.4-8.9); TRIGLYCERIDES 88 mg/dL (48-352); VLDL CHOLESTEROL 18 mg/dL
[2023-02-11 13:03] LABS: THYROID STIMULATING HORMONE 0.13 uIU/mL (0.34-5.60)
== END 2023-02-11 08:42 | disposition home or self-care (01) ==
LOC: LAB.N 08:41
PROVIDERS: ATTEND Physician Assistant Medical
DX: I10 Essential (primary) hypertension (principal); E03.9 Hypothyroidism, unspecified
CPT/HCPCS: 36415; 80053; 80061; 83721; 84439; 84443; 85025